=== PATIENT | male | born 1965 | race Caucasian/White ===

== ENCOUNTER 2018-08-20 08:00 | Emergency (ER) | payer SELFPAY ==
[~2018-08-20] VITALS: Ht 182.9 cm; Wt 147.9 kg
--- NOTE | 2018-08-20 08:22 | PHYS DOC ---
Past Medical History Past Medical History: Diabetes-Type II ("prediabetes"), Hypertension, Kidney Stone Smoking: Cigarettes (The patient is a nonsmoker.) Adult General Chief Complaint Chief Complaint: HYPERTENSION HPI HPI Patient is a 53-year-old male who presents to the emergency department for evaluation. He went to physical therapy session, for a left arm work injury yesterday, and when they checked his vitals, his SBP was 192. He states he has a history of hypertension, the patient states that he had stopped taking his Norvasc 5 mg for quite a while, but resumed about 2 weeks ago. He is asymptomatic. He denies any headache, vision changes, chest pain, or shortness of breath. He states he does not currently have a PCP, but expects to get back on his insurance plan and about a month, as he just started a new job. He does not have a functioning blood pressure cuff at home to check his blood pressure. I did discuss with the patient importance of checking his blood pressure regularly and keeping a log of the results, to help establish and determine the need for medication management and potential adjustments. Review of Systems Review of Systems Constitutional: Denies fever or chills [] Eyes: Denies change in visual acuity, redness, or eye pain, the patient does report some burning sensation in his forehead and eye area, which she states is a chronic problem which is intermittent. This is not a new problem. [] HENT: Denies nasal congestion or sore throat [] Respiratory: Denies cough or shortness of breath [] Cardiovascular:The patient denies any shortness of breath, chest pain, palpitations, or orthopnea [] GI: Denies abdominal pain, nausea, vomiting, bloody stools or diarrhea [] : Denies dysuria or hematuria [] Musculoskeletal: Denies back pain or joint pain [] Integument: Denies rash or skin lesions [] Neurologic: Denies headache, focal weakness or sensory changes [] Endocrine: Denies polyuria or polydipsia [] All other systems were reviewed and found to be within normal limits, except as documented in this note. Physical Exam Physical Exam PHYSICAL EXAM: CONSTITUTIONAL: Well developed, well nourished HEAD: normocephalic, atraumatic EENT: PERRL, EOMI. Conjunctivae normal color, sclerae non-icteric; moist mucous membranes. NECK: Supple, non-tender; no meningismus. LUNGS: Lungs CTA, breathing even and unlabored. Normal air movement. HEART: Regular rate and rhythm, no murmur CHEST: No deformity; non-tender ABDOMEN: The abdomen is soft, and non-tender, no masses or bruits. EXTREM: Normal ROM; no deformity, no calf tenderness. Normal pulses palpable in all extremities. There is no pedal edema. SKIN: No rash; no diaphoresis NEURO: Alert; normal speech and cognition; CN's grossly intact; strength grossly intact without focal deficit. BACK: No CVA TTP. Current Patient Data Vital Signs Vital Signs Date Time Temp Pulse Resp B/P (MAP) Pulse Ox O2 Delivery O2 Flow Rate FiO2 08/20/18 08:07 98.2 94 19 150/96 (114) 95 Room Air 98.2 Lab Values Laboratory Tests Test 08/20/18 08:24 White Blood Count 6.2 x10^3/uL (4.0-11.0) Red Blood Count 4.78 x10^6/uL (4.30-5.70) Hemoglobin 14.7 g/dL (13.0-17.5) Hematocrit 43.8 % (39.0-53.0) Mean Corpuscular Volume 92 fL (79-100) Mean Corpuscular Hemoglobin 31 pg (25-35) Mean Corpuscular Hemoglobin Concent 34 g/dL (31-37) Red Cell Distribution Width 14.0 % (11.5-14.5) Platelet Count 216 x10^3/uL (140-400) Neutrophils (%) (Auto) 63 % (31-73) Lymphocytes (%) (Auto) 25 % (24-48) Monocytes (%) (Auto) 8 % (0-9) Eosinophils (%) (Auto) 4 % (0-3) H Basophils (%) (Auto) 1 % (0-3) Neutrophils # (Auto) 3.9 x10^3uL (1.8-7.7) Lymphocytes # (Auto) 1.5 x10^3/uL (1.0-4.8) Monocytes # (Auto) 0.5 x10^3/uL (0.0-1.1) Eosinophils # (Auto) 0.2 x10^3/uL (0.0-0.7) Basophils # (Auto) 0.1 x10^3/uL (0.0-0.2) Sodium Level 138 mmol/L (136-145) Potassium Level 4.3 mmol/L (3.5-5.1) Chloride Level 103 mmol/L (98-107) Carbon Dioxide Level 23 mmol/L (21-32) Anion Gap 12 (6-14) Blood Urea Nitrogen 12 mg/dL (8-26) Creatinine 0.9 mg/dL (0.7-1.3) Estimated GFR (Cockcroft-Gault) 88.6 Glucose Level 205 mg/dL (70-99) H Calcium Level 9.0 mg/dL (8.5-10.1) Laboratory Tests 08/20/18 08:24 Laboratory Tests 08/20/18 08:24 EKG EKG [Normal sinus rhythm with a normal rate, normal axis, normal intervals, there are no acute ischemic ST/T changes.] Radiology/Procedures Radiology/Procedures [] Course & Med Decision Making Course & Med Decision Making Pertinent Lab studies reviewed. (See chart for details) [Patient's blood pressure 134/86 at this time. I discussed keeping a blood pressure log at home, with twice daily readings, and the importance of establishing close follow-up. The patient states that about a month he should have insurance and will be up to go back and see his primary care provider. I will not change his blood pressure medication at this time, given his current blood pressure readings. I did discuss normal physiologic fluctuation the blood pressure, and the need to determine what is abnormal that needs treatment what readings might be a variant readings. We discussed return precautions in detail.] Dragon Disclaimer Dragon Disclaimer This electronic medical record was generated, in whole or in part, using a voice recognition dictation system. Departure Departure Impression: Primary Impression: Hypertension Disposition: 01 HOME, SELF-CARE Condition: STABLE Referrals: GERBER BENNETT MD Patient Instructions: Hypertension JAN QURESHI MD August 20, 2018 08:22
[2018-08-20 08:34] LABS: BASO # 0.1 x10^3/uL (0.0-0.2); BASO % 1 % (0-3); EOS # 0.2 x10^3/uL (0.0-0.7); EOS % 4 % (0-3); HEMATOCRIT 43.8 % (39.0-53.0); HEMOGLOBIN 14.7 g/dL (13.0-17.5); LYMPH # 1.5 x10^3/uL (1.0-4.8); LYMPH % 25 % (24-48); MEAN CORPUSCULAR HEMOGLOBIN 31 pg (25-35); MEAN CORPUSCULAR HGB CONC 34 g/dL (31-37); MEAN CORPUSCULAR VOLUME 92 fL (79-100); MONO # 0.5 x10^3/uL (0.0-1.1); MONO % 8 % (0-9); NEUT # 3.9 x10^3uL (1.8-7.7); NEUT % 63 % (31-73); PLATELET COUNT 216 x10^3/uL (140-400); RED BLOOD COUNT 4.78 x10^6/uL (4.30-5.70); WHITE BLOOD COUNT 6.2 x10^3/uL (4.0-11.0)
[2018-08-20 08:43] LABS: CREATININE 0.9 mg/dL (0.7-1.3); GFR 88.6; POTASSIUM 4.3 mmol/L (3.5-5.1)
[2018-08-20 08:59] VITALS: BP 128/90
--- NOTE | 2018-08-20 14:33 | EKG ---
[facility] [address] [place] [address] Test Date: 2018-08-20 Test Time: 08:14:21 Pat Name: JESÚS ESTRADA Department: Room: Gender: M Disability Manager: : 1965 Requested By: JAN QURESHI Order Number: [id number] Reading MD: Prashant Mckeon Measurements Intervals [place] Rate: 90 P: 34 ME: 146 QRS: -2 QRSD: 82 T: 17 QT: 352 QTc: 435 Interpretive Statements SINUS RHYTHM LEFTWARD AXIS NONSPECIFIC ST-T WAVE CHANGES. Electronically Signed On 08-21-2018 10:09:28 CDT by Prashant Mckeon
== END 2018-08-20 09:04 | disposition home or self-care (01) ==
LOC: ER 08:00
DX: S49.92XA Unspecified injury of left shoulder and upper arm, initial encounter (principal); I10 Essential (primary) hypertension; E11.9 Type 2 diabetes mellitus without complications; X58.XXXA Exposure to other specified factors, initial encounter; Y93.89 Activity, other specified; Y92.69 Other specified industrial and construction area as the place of occurrence of the external cause; Y99.0 Civilian activity done for income or pay
CPT/HCPCS: 36415; 80048; 85025; 93005; 99285-25

== ENCOUNTER 2019-01-04 12:07 | Inpatient (IN) | payer SELFPAY ==
[~2019-01-04] VITALS: Ht 182.9 cm; Wt 147.9 kg
--- NOTE | 2019-01-04 14:08 | PHYS DOC ---
Past Medical History Past Medical History: Diabetes-Type II, Hypertension, Kidney Stone Past Surgical History: Tonsillectomy Additional Past Surgical Histo: KNEE SURGERY, KIDNEY STONES Alcohol Use: Occasionally Adult General Chief Complaint Chief Complaint: FLANK PAIN HPI HPI Patient is a 53 year old male who presents with 1015 this morning began having right sided abdominal pain and flank pain. States feels like he only gets out small amounts of urine at a time. Denies blood in urine. Rates his pain a 6/10. Review of Systems Review of Systems Constitutional: Denies fever or chills [] GI: abdominal pain, denies nausea, vomiting, bloody stools or diarrhea [] : Frequency. Denies dysuria or hematuria [] Musculoskeletal: Right back pain or joint pain [] Integument: Denies rash or skin lesions [] Neurologic: Denies headache, focal weakness or sensory changes [] All other systems were reviewed and found to be within normal limits, except as documented in this note. Current Medications Current Medications Current Medications Medications (Trade) Dose Ordered Sig/[facility] Start Time Stop Time Status Last Admin Dose Admin Fentanyl Citrate (Fentanyl 2ml Vial) 50 mcg 1X ONCE 01/04/19 15:00 01/04/19 15:01 DC 01/04/19 15:00 50 MCG Ketorolac Tromethamine (Toradol 30mg Vial) 30 mg 1X ONCE 01/04/19 15:00 01/04/19 15:01 DC 01/04/19 15:00 30 MG Sodium Chloride 1,000 ml @ 1,000 mls/hr Q1H 01/04/19 15:00 01/04/19 15:59 DC 01/04/19 14:34 1,000 MLS/HR Allergies Allergies Allergies Coded Allergies Type Severity Reaction Last Updated Verified No Known Drug Allergies 01/04/19 No Physical Exam Physical Exam Constitutional: Well developed, well nourished, no acute distress, non-toxic appearance. [] Cardiovascular:Heart rate regular rhythm, no murmur [] Lungs & Thorax: Bilateral breath sounds clear to auscultation [] Abdomen: Bowel sounds normal, soft, Right sided tenderness, no masses, no pulsatile masses. [] Skin: Warm, dry, no erythema, no rash. [] Back: No tenderness, Right CVA tenderness. [] Extremities: No tenderness, no cyanosis, no clubbing, ROM intact, no edema. [] Neurologic: Alert and oriented X 3, normal motor function, normal sensory function, no focal deficits noted. [] Psychologic: Affect normal, judgement normal, mood normal. [] Current Patient Data Vital Signs Vital Signs Date Time Temp Pulse Resp B/P (MAP) Pulse Ox O2 Delivery O2 Flow Rate FiO2 01/04/19 15:00 16 98 Room Air 01/04/19 15:00 84 152/90 (110) 01/04/19 13:00 98.7 98.7 Lab Values Laboratory Tests Test 01/04/19 14:00 01/04/19 14:25 Urine Collection Type Unknown Urine Color Yellow Urine Clarity Clear Urine pH 5.0 Urine Specific [place] 1.015 Urine Protein Negative mg/dL (NEG-TRACE) Urine Glucose (UA) 500 mg/dL (NEG) Urine Ketones (Stick) Negative mg/dL (NEG) Urine Blood Large (NEG) Urine Nitrite Negative (NEG) Urine Bilirubin Negative (NEG) Urine Urobilinogen Dipstick 0.2 mg/dL (0.2 mg/dL) Urine Leukocyte Esterase Negative (NEG) Urine RBC Tntc /HPF (0-2) Urine WBC Occ /HPF (0-4) Urine Bacteria 0 /HPF (0-FEW) Urine Hyaline Casts Moderate /HPF Urine Mucus Marked /LPF Urine Opiates Screen Neg (NEG) Urine Methadone Screen Neg (NEG) Urine Barbiturates Neg (NEG) Urine Phencyclidine Screen Neg (NEG) Urine Amphetamine/Methamphetamine Neg (NEG) Urine Benzodiazepines Screen Neg (NEG) Urine Cocaine Screen Neg (NEG) Urine Cannabinoids Screen Neg (NEG) Urine Ethyl Alcohol Neg (NEG) White Blood Count 9.3 x10^3/uL (4.0-11.0) Red Blood Count 4.88 x10^6/uL (4.30-5.70) Hemoglobin 15.1 g/dL (13.0-17.5) Hematocrit 43.9 % (39.0-53.0) Mean Corpuscular Volume 90 fL (79-100) Mean Corpuscular Hemoglobin 31 pg (25-35) Mean Corpuscular Hemoglobin Concent 35 g/dL (31-37) Red Cell Distribution Width 13.8 % (11.5-14.5) Platelet Count 218 x10^3/uL (140-400) Neutrophils (%) (Auto) 79 % (31-73) H Lymphocytes (%) (Auto) 14 % (24-48) L Monocytes (%) (Auto) 5 % (0-9) Eosinophils (%) (Auto) 1 % (0-3) Basophils (%) (Auto) 1 % (0-3) Neutrophils # (Auto) 7.4 x10^3/uL (1.8-7.7) Lymphocytes # (Auto) 1.3 x10^3/uL (1.0-4.8) Monocytes # (Auto) 0.5 x10^3/uL (0.0-1.1) Eosinophils # (Auto) 0.1 x10^3/uL (0.0-0.7) Basophils # (Auto) 0.0 x10^3/uL (0.0-0.2) Sodium Level 135 mmol/L (136-145) L Potassium Level 4.4 mmol/L (3.5-5.1) Chloride Level 101 mmol/L (98-107) Carbon Dioxide Level 23 mmol/L (21-32) Anion Gap 11 (6-14) Blood Urea Nitrogen 11 mg/dL (8-26) Creatinine 1.0 mg/dL (0.7-1.3) Estimated GFR (Cockcroft-Gault) 78.5 BUN/Creatinine Ratio 11 (6-20) Glucose Level 239 mg/dL (70-99) H Calcium Level 9.7 mg/dL (8.5-10.1) Total Bilirubin 0.6 mg/dL (0.2-1.0) Aspartate Amino Transferase (AST) 45 U/L (15-37) H Alanine Aminotransferase (ALT) 85 U/L (16-63) H Alkaline Phosphatase 88 U/L (46-116) Total Protein 7.8 g/dL (6.4-8.2) Albumin 4.0 g/dL (3.4-5.0) Albumin/Globulin Ratio 1.1 (1.0-1.7) Laboratory Tests 01/04/19 14:25 Laboratory Tests 01/04/19 14:25 EKG EKG [] Radiology/Procedures Radiology/Procedures [] Impressions: [facility] [address] [place], [place] [id number] IMAGING REPORT Signed PATIENT: JESÚS ESTRADA BACCOUNT: [id number] : 1965 LOCATION: ER AGE: 53 SEX: M EXAM STATUS: REG ER ORD. PHYSICIAN: BRENT TOVAR APRN REASON: hx kidney stone, right sided pain PROCEDURE: CT ABDOMEN PELVIS WO CONTRAST CT ABDOMEN PELVIS WO CONTRAST Indication: History of kidney stones. Right abdominal pain. Exposure: One or more of the following individualized dose reduction techniques were utilized for this examination: 1. Automated exposure control 2. Adjustment of the mA and/or kV according to patient size 3. Use of iterative reconstruction technique. Comparison: None are available. Technique: No intravenous contrast given. No oral contrast per request. Findings: Evaluation of solid viscera, bowel and vasculature is compromised by the noncontrast technique. Mild atelectasis or fibrosis in the lung bases. Hypodense liver compatible with fatty infiltration. Mild focus of relative increased density in the left liver measuring about 2 cm, may be due to fatty sparing, versus a lesion. Series 2, image 54. Spleen is unremarkable. Pancreas unremarkable. No adrenal mass. Moderate right hydronephrosis and ureteric dilatation to the right ureterovesical junction where there is a 6 mm calculus. Several additional right intrarenal calculi, measuring up to 9 mm in diameter. Approximately 2 left renal calculi, nonobstructive, largest at the lower pole measures 6 mm. No left hydronephroureter. No calcified gallstone. Aorta is nonaneurysmal. No significant lymph node enlargement. No significant small bowel distention. Colonic diverticulosis without evidence of acute colitis. The appendix is normal. No evidence of ascites or pneumoperitoneum. No definite abnormality of the urinary bladder. Degenerative spondylosis. Minimal retrolisthesis of L2 on L3, L3 on L4 and L4 on L5 vertebral bodies. Bilateral spondylolysis at L5 without L5-S1 spondylolisthesis. IMPRESSION: 1. Moderately obstructive 6 mm calculus at the right ureterovesical junction. 2. Additional intrarenal calculi bilaterally. 3. Hepatic steatosis. Small 2 cm area of relative hyperintensity in the anterior left liver may just represent an area of fatty sparing but lesion is not excludable. Further evaluation could be obtained with contrast-enhanced CT or MRI. Electronically signed by: Barrie Stinson MD (01/04/2019 2:22 PM) [id number] DICTATED and SIGNED BY: BARRIE STINSON MD DATE: 01/04/19 142 Course & Med Decision Making Course & Med Decision Making Patient is a 53 year old male who presents with 1015 this morning began having right sided abdominal pain and flank pain. States feels like he only gets out small amounts of urine at a time. Denies blood in urine. Rates his pain a 6/10. Right cva tenderness. Right sided abdominal tenderness with palpation. Abdomen otherwise soft and non-tender. Denies soa, chest pain, nausea, vomiting, di arrhea, numbness or tingling, headache, dizziness. Skin pink warm and dry. Alert and oriented. Ambulatory with steady gait. Mucus membranes moist. States hx of kidney stones and does not have a urologist. Last kidney stone with stint placed in 2014. Urine shows no infection. I have spoken to Urology ERROL Leo. She states to admit and they will come see the patient. I spoke to Dr. Gary and patient is being admitted for kidney stones and follow-up with urology. CT shows: 1. Moderately obstructive 6 mm calculus at the right ureterovesical junction. 2. Additional intrarenal calculi bilaterally. 3. Hepatic steatosis. Small 2 cm area of relative hyperintensity in the anterior left liver may just represent an area of fatty sparing but lesion is not excludable. Further evaluation could be obtained with contrast-enhanced CT or MRI. Dragon Disclaimer Dragon Disclaimer This electronic medical record was generated, in whole or in part, using a voice recognition dictation system. Departure Departure Impression: Primary Impression: Kidney stone Disposition: ADMITTED INPATIENT Admitting Physician: KACY Condition: STABLE Referrals: NO PCP (PCP) BRENT TOVAR APRN Jan 04, 2019 14:08
[2019-01-04 14:16] LABS: BILIRUBIN,URINE NEGATIVE (NEG); CLARITY,URINE CLEAR; COLOR,URINE YELLOW; NITRITE,URINE NEGATIVE (NEG); PROTEIN,URINE NEGATIVE (NEG-TRACE); UROBILINOGEN,URINE 0.2 mg/dL (0.2 mg/dL)
[2019-01-04 14:23] LABS: BARBITURATES NEG (NEG); BENZODIAZEPINES NEG (NEG); CANNABINOIDS NEG (NEG); COCAINE NEG (NEG); METHADONE NEG (NEG); OPIATES NEG (NEG); PHENCYCLIDINE NEG (NEG)
[2019-01-04 14:25] LABS: AMPHETAMINE/METHAMPHETAMINE NEG (NEG)
--- NOTE | 2019-01-04 14:25 | RAD ---
CT ABDOMEN PELVIS WO CONTRAST Indication: History of kidney stones. Right abdominal pain. Exposure: One or more of the following individualized dose reduction techniques were utilized for this examination: 1. Automated exposure control 2. Adjustment of the mA and/or kV according to patient size 3. Use of iterative reconstruction technique. Comparison: None are available. Technique: No intravenous contrast given. No oral contrast per request. Findings: Evaluation of solid viscera, bowel and vasculature is compromised by the noncontrast technique. Mild atelectasis or fibrosis in the lung bases. Hypodense liver compatible with fatty infiltration. Mild focus of relative increased density in the left liver measuring about 2 cm, may be due to fatty sparing, versus a lesion. Series 2, image 54. Spleen is unremarkable. Pancreas unremarkable. No adrenal mass. Moderate right hydronephrosis and ureteric dilatation to the right ureterovesical junction where there is a 6 mm calculus. Several additional right intrarenal calculi, measuring up to 9 mm in diameter. Approximately 2 left renal calculi, nonobstructive, largest at the lower pole measures 6 mm. No left hydronephroureter. No calcified gallstone. Aorta is nonaneurysmal. No significant lymph node enlargement. No significant small bowel distention. Colonic diverticulosis without evidence of acute colitis. The appendix is normal. No evidence of ascites or pneumoperitoneum. No definite abnormality of the urinary bladder. Degenerative spondylosis. Minimal retrolisthesis of L2 on L3, L3 on L4 and L4 on L5 vertebral bodies. Bilateral spondylolysis at L5 without L5-S1 spondylolisthesis. IMPRESSION: 1. Moderately obstructive 6 mm calculus at the right ureterovesical junction. 2. Additional intrarenal calculi bilaterally. 3. Hepatic steatosis. Small 2 cm area of relative hyperintensity in the anterior left liver may just represent an area of fatty sparing but lesion is not excludable. Further evaluation could be obtained with contrast-enhanced CT or MRI. Electronically signed by: Barrie Stinson MD (01/04/2019 2:22 PM) [facility]
[2019-01-04 14:27] LABS: HYALINE CASTS, URINE MODERATE /HPF
[2019-01-04 14:28] LABS: BACTERIA,URINE 0 /HPF (0-FEW); RBC,URINE TNTC /HPF (0-2); WBC,URINE OCC /HPF (0-4)
[2019-01-04 14:36] LABS: BASO % 1 % (0-3); EOS # 0.1 x10^3/uL (0.0-0.7); EOS % 1 % (0-3); HEMATOCRIT 43.9 % (39.0-53.0); HEMOGLOBIN 15.1 g/dL (13.0-17.5); LYMPH # 1.3 x10^3/uL (1.0-4.8); LYMPH % 14 % (24-48); MEAN CORPUSCULAR HEMOGLOBIN 31 pg (25-35); MEAN CORPUSCULAR HGB CONC 35 g/dL (31-37); MEAN CORPUSCULAR VOLUME 90 fL (79-100); MONO # 0.5 x10^3/uL (0.0-1.1); MONO % 5 % (0-9); NEUT # 7.4 x10^3/uL (1.8-7.7); NEUT % 79 % (31-73); PLATELET COUNT 218 x10^3/uL (140-400); RED BLOOD COUNT 4.88 x10^6/uL (4.30-5.70); RED CELL DISTRIBUTION WIDTH 13.8 % (11.5-14.5); WHITE BLOOD COUNT 9.3 x10^3/uL (4.0-11.0)
[2019-01-04 14:46] LABS: CALCIUM 9.7 mg/dL (8.5-10.1); GFR 78.5; POTASSIUM 4.4 mmol/L (3.5-5.1)
[2019-01-04 14:52] LABS: ALBUMIN/GLOBULIN RATIO 1.1 (1.0-1.7); TOTAL BILIRUBIN 0.6 mg/dL (0.2-1.0); TOTAL PROTEIN 7.8 g/dL (6.4-8.2)
[2019-01-04] MEDS ORDERED: KETOROLAC 30 MG/ML VIAL. IV ONE (15:00)
[2019-01-04] MEDS ORDERED: IV NORMAL SALINE 1000ML BAG 1,000 ML IV SCH (15:00)
[2019-01-04] MEDS ORDERED: fentaNYL PF VIAL 100 MCG/2 ML VIAL IV ONE (15:00)
[2019-01-04] MEDS ORDERED: ONDANSETRON PF 4 MG/2 ML VIAL. IV PRN (16:15)
[2019-01-04] MEDS ORDERED: fentaNYL PF VIAL 100 MCG/2 ML VIAL IV PRN (16:15)
--- NOTE | 2019-01-04 20:00 | NUR ---
Patient, JESÚS HAJI, admitted to room 560, plan of care discussed, call light described, will monitor. Addendum: 01/05/19 at 0633 by STEPHAN PEREZ RN patient denies any history as in DM, HTN, reports he isn't taking any medications.
[2019-01-04] MEDS: IV NORMAL SALINE 1000ML BAG 1,000 ML IV SCH (20:08)
--- NOTE | 2019-01-04 21:08 | HP ---
ADMIT DATE: 01/04/2019 CHIEF COMPLAINT: Flank pain. HISTORY OF PRESENT ILLNESS: The patient is a pleasant middle-aged male who has flank pain, today it is rated at 10/10. He has associated nausea. It has been occurring for several days. He took some [id number] meds, that did not work. We did a CAT scan, he has got a 6 mm stone. I talked to the ER doctor. We are going to admit the patient and consult Urology. PAST MEDICAL HISTORY: Diabetes, hypertension, kidney stones, tonsillectomy, knee surgery, overweight. ALLERGIES: None. FAMILY HISTORY: Hypertension. SOCIAL HISTORY: Does not drink, smoke or take drugs. MEDICATIONS: Reviewed, please refer to the MRAD. REVIEW OF SYSTEMS: GENERAL: No history of weight change, weakness or fevers. SKIN: No bruising, hair changes or rashes. EYES: No blurred, double or loss of vision. NOSE AND THROAT: No history of nosebleeds, hoarseness or sore throat. HEART: No history of palpitations, chest pain or shortness of breath on exertion. LUNGS: Denies cough, hemoptysis, wheezing or shortness of breath. GASTROINTESTINAL: Denies changes in appetite, nausea, vomiting, diarrhea or constipation. He complains of flank pain. GENITOURINARY: No history of frequency, urgency, hesitancy or nocturia. NEUROLOGIC: Denies history of numbness, tingling, tremor or weakness. PSYCHIATRIC: No history of panic, anxiety or depression. ENDOCRINE: No history of heat or cold intolerance, polyuria or polydipsia. EXTREMITIES: Denies muscle weakness, joint pain, pain on walking or stiffness. PHYSICAL EXAMINATION: VITALS: Within normal limits and are stable. GENERAL: No apparent distress. Alert and oriented. HEENT: Head is normocephalic, atraumatic, pupils were equally round and reactive to light and accommodation. NECK: Supple, no JVD, no thyromegaly was noted. LUNGS: Clear to auscultation in all lung seth without rhonchi or wheezing. HEART: RRR, S1, S2 present. Peripheral pulses intact, no obvious murmurs were noted. ABDOMEN: Soft, nontender. Positive bowel sounds no organomegaly, normal bowel sounds. EXTREMITIES: Without any cyanosis, clubbing, or edema. Pedal pulses intact, Homans sign is negative. NEUROLOGIC: Normal speech, normal tone. A & O x3, moves all extremities, no obvious focal deficits. PSYCHIATRIC: Normal affect, normal mood. Stable. SKIN: No ulcerations or rashes, good skin turgor, no jaundice. VASCULAR: Good capillary refill, neurovascular bundle appears to be intact. LABORATORY DATA: Hematology is normal. Electrolytes are normal other than sodium of 135. Urinalysis shows a large amount of blood. ASSESSMENT AND PLAN: Symptomatic kidney stones. The patient has been admitted. We will consult Urology. Strain his urine, IV fluids, p.r.n. antiemetics, p.r.n. narcotics. ROBERT KO DO DR: MARTELL/kristian JOB#: [id number] / [id number]
[2019-01-04 23:00] VITALS: BP 134/91
[2019-01-05 03:00] VITALS: BP 112/69
[2019-01-05 07:00] VITALS: BP 144/95
[2019-01-05] MEDS: IV NORMAL SALINE 1000ML BAG 1,000 ML IV SCH (07:33)
[2019-01-05] MEDS ORDERED: DEXTROSE 50% 25 GM / 50ML DISP.SYRIN. IV PRN (08:00)
[2019-01-05] MEDS ORDERED: IV DEXTROSE 5% 250 ML BAG. IV PRN (08:00)
[2019-01-05] MEDS ORDERED: INSULIN LISPRO 300 UNITS/3 ML VIAL. SQ SCH (08:00)
[2019-01-05] MEDS ORDERED: TAMSULOSIN 0.4 MG CAP.ER.24H. PO SCH ×2 (08:00→09:00)
[2019-01-05] MEDS ORDERED: KETOROLAC 30 MG/ML VIAL. IV PRN (08:00)
--- NOTE | 2019-01-05 08:04 | PDOC ---
PROGRESS NOTES Chief Complaint Chief Complaint Right obstructive uropathy - 6mm uretal stone Hepatic steatosis Diabetes - with hyperglycemia Hypertension H/o kidney stones Obesity Transaminitis History of Present Illness History of Present Illness Mr Hanna is a 53yo male w/ PMHx diabetes, hypertension, kidney stones, obese who was admitted with flank pain 10/10 and nausea, found on CAT scan with a right ureterovesicular junction 6 mm stone with moderate hydronephrosis. He has a history of multiple kidney stones requiring b/l percutaneous nephrolithotomy in 2012 done at [facility] [place]. Pain was improved to 5/10 after toradol injection. NPO for now Vitals Vitals Vital Signs Date Time Temp Pulse Resp B/P (MAP) Pulse Ox O2 Delivery O2 Flow Rate FiO2 01/05/19 03:00 97.7 80 18 112/69 (83) 91 Room Air 97.7 Physical Exam General: Alert, Oriented X3, Cooperative Heart: Regular rate, Normal S1, Normal S2 Lungs: Clear Abdomen: Normal bowel sounds, Soft Extremities: No clubbing, No cyanosis Skin: No rashes, No breakdown Labs LABS Laboratory Tests Test 01/04/19 14:00 01/04/19 14:25 Urine Collection Type Unknown Urine Color Yellow Urine Clarity Clear Urine pH 5.0 Urine Specific [place] 1.015 Urine Protein Negative mg/dL (NEG-TRACE) Urine Glucose (UA) 500 mg/dL (NEG) Urine Ketones (Stick) Negative mg/dL (NEG) Urine Blood Large (NEG) Urine Nitrite Negative (NEG) Urine Bilirubin Negative (NEG) Urine Urobilinogen Dipstick 0.2 mg/dL (0.2 mg/dL) Urine Leukocyte Esterase Negative (NEG) Urine RBC Tntc /HPF (0-2) Urine WBC Occ /HPF (0-4) Urine Bacteria 0 /HPF (0-FEW) Urine Hyaline Casts Moderate /HPF Urine Mucus Marked /LPF Urine Opiates Screen Neg (NEG) Urine Methadone Screen Neg (NEG) Urine Barbiturates Neg (NEG) Urine Phencyclidine Screen Neg (NEG) Urine Amphetamine/Methamphetamine Neg (NEG) Urine Benzodiazepines Screen Neg (NEG) Urine Cocaine Screen Neg (NEG) Urine Cannabinoids Screen Neg (NEG) Urine Ethyl Alcohol Neg (NEG) White Blood Count 9.3 x10^3/uL (4.0-11.0) Red Blood Count 4.88 x10^6/uL (4.30-5.70) Hemoglobin 15.1 g/dL (13.0-17.5) Hematocrit 43.9 % (39.0-53.0) Mean Corpuscular Volume 90 fL (79-100) Mean Corpuscular Hemoglobin 31 pg (25-35) Mean Corpuscular Hemoglobin Concent 35 g/dL (31-37) Red Cell Distribution Width 13.8 % (11.5-14.5) Platelet Count 218 x10^3/uL (140-400) Neutrophils (%) (Auto) 79 % (31-73) Lymphocytes (%) (Auto) 14 % (24-48) Monocytes (%) (Auto) 5 % (0-9) Eosinophils (%) (Auto) 1 % (0-3) Basophils (%) (Auto) 1 % (0-3) Neutrophils # (Auto) 7.4 x10^3/uL (1.8-7.7) Lymphocytes # (Auto) 1.3 x10^3/uL (1.0-4.8) Monocytes # (Auto) 0.5 x10^3/uL (0.0-1.1) Eosinophils # (Auto) 0.1 x10^3/uL (0.0-0.7) Basophils # (Auto) 0.0 x10^3/uL (0.0-0.2) Sodium Level 135 mmol/L (136-145) Potassium Level 4.4 mmol/L (3.5-5.1) Chloride Level 101 mmol/L (98-107) Carbon Dioxide Level 23 mmol/L (21-32) Anion Gap 11 (6-14) Blood Urea Nitrogen 11 mg/dL (8-26) Creatinine 1.0 mg/dL (0.7-1.3) Estimated GFR (Cockcroft-Gault) 78.5 BUN/Creatinine Ratio 11 (6-20) Glucose Level 239 mg/dL (70-99) Calcium Level 9.7 mg/dL (8.5-10.1) Total Bilirubin 0.6 mg/dL (0.2-1.0) Aspartate Amino Transf (AST/SGOT) 45 U/L (15-37) Alanine Aminotransferase (ALT/SGPT) 85 U/L (16-63) Alkaline Phosphatase 88 U/L (46-116) Total Protein 7.8 g/dL (6.4-8.2) Albumin 4.0 g/dL (3.4-5.0) Albumin/Globulin Ratio 1.1 (1.0-1.7) Assessment and Plan Assessmemt and Plan Problems Medical Problems: (1) Kidney stone Status: Acute Comment Review of Relevant I have reviewed the following items tamiko (where applicable) has been applied. Labs Laboratory Tests Test 01/04/19 14:00 01/04/19 14:25 Urine Collection Type Unknown Urine Color Yellow Urine Clarity Clear Urine pH 5.0 Urine Specific [place] 1.015 Urine Protein Negative mg/dL (NEG-TRACE) Urine Glucose (UA) 500 mg/dL (NEG) Urine Ketones (Stick) Negative mg/dL (NEG) Urine Blood Large (NEG) Urine Nitrite Negative (NEG) Urine Bilirubin Negative (NEG) Urine Urobilinogen Dipstick 0.2 mg/dL (0.2 mg/dL) Urine Leukocyte Esterase Negative (NEG) Urine RBC Tntc /HPF (0-2) Urine WBC Occ /HPF (0-4) Urine Bacteria 0 /HPF (0-FEW) Urine Hyaline Casts Moderate /HPF Urine Mucus Marked /LPF Urine Opiates Screen Neg (NEG) Urine Methadone Screen Neg (NEG) Urine Barbiturates Neg (NEG) Urine Phencyclidine Screen Neg (NEG) Urine Amphetamine/Methamphetamine Neg (NEG) Urine Benzodiazepines Screen Neg (NEG) Urine Cocaine Screen Neg (NEG) Urine Cannabinoids Screen Neg (NEG) Urine Ethyl Alcohol Neg (NEG) White Blood Count 9.3 x10^3/uL (4.0-11.0) Red Blood Count 4.88 x10^6/uL (4.30-5.70) Hemoglobin 15.1 g/dL (13.0-17.5) Hematocrit 43.9 % (39.0-53.0) Mean Corpuscular Volume 90 fL (79-100) Mean Corpuscular Hemoglobin 31 pg (25-35) Mean Corpuscular Hemoglobin Concent 35 g/dL (31-37) Red Cell Distribution Width 13.8 % (11.5-14.5) Platelet Count 218 x10^3/uL (140-400) Neutrophils (%) (Auto) 79 % (31-73) Lymphocytes (%) (Auto) 14 % (24-48) Monocytes (%) (Auto) 5 % (0-9) Eosinophils (%) (Auto) 1 % (0-3) Basophils (%) (Auto) 1 % (0-3) Neutrophils # (Auto) 7.4 x10^3/uL (1.8-7.7) Lymphocytes # (Auto) 1.3 x10^3/uL (1.0-4.8) Monocytes # (Auto) 0.5 x10^3/uL (0.0-1.1) Eosinophils # (Auto) 0.1 x10^3/uL (0.0-0.7) Basophils # (Auto) 0.0 x10^3/uL (0.0-0.2) Sodium Level 135 mmol/L (136-145) Potassium Level 4.4 mmol/L (3.5-5.1) Chloride Level 101 mmol/L (98-107) Carbon Dioxide Level 23 mmol/L (21-32) Anion Gap 11 (6-14) Blood Urea Nitrogen 11 mg/dL (8-26) Creatinine 1.0 mg/dL (0.7-1.3) Estimated GFR (Cockcroft-Gault) 78.5 BUN/Creatinine Ratio 11 (6-20) Glucose Level 239 mg/dL (70-99) Calcium Level 9.7 mg/dL (8.5-10.1) Total Bilirubin 0.6 mg/dL (0.2-1.0) Aspartate Amino Transf (AST/SGOT) 45 U/L (15-37) Alanine Aminotransferase (ALT/SGPT) 85 U/L (16-63) Alkaline Phosphatase 88 U/L (46-116) Total Protein 7.8 g/dL (6.4-8.2) Albumin 4.0 g/dL (3.4-5.0) Albumin/Globulin Ratio 1.1 (1.0-1.7) Laboratory Tests Test 01/04/19 14:00 01/04/19 14:25 Urine Collection Type Unknown Urine Color Yellow Urine Clarity Clear Urine pH 5.0 Urine Specific [place] 1.015 Urine Protein Negative mg/dL (NEG-TRACE) Urine Glucose (UA) 500 mg/dL (NEG) Urine Ketones (Stick) Negative mg/dL (NEG) Urine Blood Large (NEG) Urine Nitrite Negative (NEG) Urine Bilirubin Negative (NEG) Urine Urobilinogen Dipstick 0.2 mg/dL (0.2 mg/dL) Urine Leukocyte Esterase Negative (NEG) Urine RBC Tntc /HPF (0-2) Urine WBC Occ /HPF (0-4) Urine Bacteria 0 /HPF (0-FEW) Urine Hyaline Casts Moderate /HPF Urine Mucus Marked /LPF Urine Opiates Screen Neg (NEG) Urine Methadone Screen Neg (NEG) Urine Barbiturates Neg (NEG) Urine Phencyclidine Screen Neg (NEG) Urine Amphetamine/Methamphetamine Neg (NEG) Urine Benzodiazepines Screen Neg (NEG) Urine Cocaine Screen Neg (NEG) Urine Cannabinoids Screen Neg (NEG) Urine Ethyl Alcohol Neg (NEG) White Blood Count 9.3 x10^3/uL (4.0-11.0) Red Blood Count 4.88 x10^6/uL (4.30-5.70) Hemoglobin 15.1 g/dL (13.0-17.5) Hematocrit 43.9 % (39.0-53.0) Mean Corpuscular Volume 90 fL (79-100) Mean Corpuscular Hemoglobin 31 pg (25-35) Mean Corpuscular Hemoglobin Concent 35 g/dL (31-37) Red Cell Distribution Width 13.8 % (11.5-14.5) Platelet Count 218 x10^3/uL (140-400) Neutrophils (%) (Auto) 79 % (31-73) Lymphocytes (%) (Auto) 14 % (24-48) Monocytes (%) (Auto) 5 % (0-9) Eosinophils (%) (Auto) 1 % (0-3) Basophils (%) (Auto) 1 % (0-3) Neutrophils # (Auto) 7.4 x10^3/uL (1.8-7.7) Lymphocytes # (Auto) 1.3 x10^3/uL (1.0-4.8) Monocytes # (Auto) 0.5 x10^3/uL (0.0-1.1) Eosinophils # (Auto) 0.1 x10^3/uL (0.0-0.7) Basophils # (Auto) 0.0 x10^3/uL (0.0-0.2) Sodium Level 135 mmol/L (136-145) Potassium Level 4.4 mmol/L (3.5-5.1) Chloride Level 101 mmol/L (98-107) Carbon Dioxide Level 23 mmol/L (21-32) Anion Gap 11 (6-14) Blood Urea Nitrogen 11 mg/dL (8-26) Creatinine 1.0 mg/dL (0.7-1.3) Estimated GFR (Cockcroft-Gault) 78.5 BUN/Creatinine Ratio 11 (6-20) Glucose Level 239 mg/dL (70-99) Calcium Level 9.7 mg/dL (8.5-10.1) Total Bilirubin 0.6 mg/dL (0.2-1.0) Aspartate Amino Transf (AST/SGOT) 45 U/L (15-37) Alanine Aminotransferase (ALT/SGPT) 85 U/L (16-63) Alkaline Phosphatase 88 U/L (46-116) Total Protein 7.8 g/dL (6.4-8.2) Albumin 4.0 g/dL (3.4-5.0) Albumin/Globulin Ratio 1.1 (1.0-1.7) Medications Current Medications Sodium Chloride 1,000 ml @ 1,000 mls/hr Q1H IV Last administered on 01/04/19at 14:34; Start 01/04/19 at 15:00; Stop 01/04/19 at 15:59; Status DC Fentanyl Citrate (Fentanyl 2ml Vial) 50 mcg 1X ONCE IV Last administered on 01/04/19at 15:00; Start 01/04/19 at 15:00; Stop 01/04/19 at 15:01; Status DC Ketorolac Tromethamine (Toradol 30mg Vial) 30 mg 1X ONCE IV Last administered on 01/04/19at 15:00; Start 01/04/19 at 15:00; Stop 01/04/19 at 15:01; Status DC Ondansetron HCl (Zofran) 4 mg PRN Q8HRS PRN IV NAUSEA/VOMITING; Start 01/04/19 at 16:15; Stop 01/05/19 at 16:14 Fentanyl Citrate (Fentanyl 2ml Vial) 50 mcg PRN Q1HR PRN IV PAIN Last administered on 01/04/19at 20:08; Start 01/04/19 at 16:15; Stop 01/05/19 at 16:14 Sodium Chloride 1,000 ml @ 75 mls/hr [id number] IV Last administered on 01/05/19at 07:33; Start 01/04/19 at 16:01; Stop 01/05/19 at 16:00 Tamsulosin HCl (Flomax) 0.4 mg BID66 PO ; Start 01/05/19 at 08:00; Status UNV Ketorolac Tromethamine (Toradol 30mg Vial) 30 mg PRN Q6HRS PRN IV PAIN; Start 01/05/19 at 08:00; Stop 01/10/19 at 07:59; Status UNV Insulin Human Lispro (HumaLOG) 0-7 UNITS TIDWMEALS SQ ; Start 01/05/19 at 08:00; Status UNV Dextrose (Dextrose 50%-Water Syringe) 12.5 gm PRN Q15MIN PRN IV SEE COMMENTS; Start 01/05/19 at 08:00; Status UNV Dextrose 250 ml PRN Q15MIN PRN IV SEE COMMENTS; Start 01/05/19 at 08:00; Status UNV Vitals/I & O Vital Sign - Last 24 Hours 01/04/19 01/04/19 01/04/19 01/04/19 13:00 14:00 15:00 15:00 Temp 98.7 98.7 Pulse 80 88 84 Resp 18 18 18 16 B/P (MAP) 148/98 (115) 159/96 (117) 152/90 (110) Pulse Ox 96 95 95 98 O2 Delivery Room Air Room Air Room Air Room Air 01/04/19 01/04/19 01/04/19 01/04/19 16:00 17:00 18:00 18:30 Resp 18 18 18 18 B/P (MAP) 134/81 (98) 128/82 (97) 137/92 (107) 132/86 (101) Pulse Ox 97 98 99 97 O2 Delivery Room Air Room Air Room Air Room Air 01/04/19 01/04/19 01/04/19 01/05/19 20:00 20:08 23:00 02:43 Temp 98.0 98.0 Pulse 84 Resp 20 20 20 B/P (MAP) 134/91 (105) Pulse Ox 95 O2 Delivery Room Air Room Air Room Air 01/05/19 03:00 Temp 97.7 97.7 Pulse 80 Resp 18 B/P (MAP) 112/69 (83) Pulse Ox 91 O2 Delivery Room Air Intake and Output 01/04/19 01/04/19 01/05/19 14:59 22:59 06:59 Intake Total 1000 ml 260 ml 350 ml Balance 1000 ml 260 ml [address] abdomen - 1. Moderately obstructive 6 mm calculus at the right ureterovesical junction. 2. Additional intrarenal calculi bilaterally. 3. Hepatic steatosis. Small 2 cm area of relative hyperintensity in the anterior left liver may just represent an area of fatty sparing but lesion is not excludable. Further evaluation could be obtained with contrast-enhanced CT or MRI. NORA MANN MD Jan 05, 2019 08:04
--- NOTE | 2019-01-05 08:56 | PDOC2 ---
POLLO GALAVIZ 01/05/19 0856: UROLOGY CONSULT Date of Consult Date of Consult DATE: 01/05/19 TIME: 08:55 Identification/Chief Complaint Chief Complaint 6mm right uvj stone Source Source: Chart review, Patient History of Present Illness Reason for Visit: 53yo male with PMH of DM and HTN presented to ER for right flank pain. CT showed 6mm right uvj stone with moderate hydronephrosis. He has a history of multiple kidney stones requiring b/l [place] [facility] [place] He states his pain is improved but still present this morning. Rated 5/10 pain. He denies nausea, vomiting, dysuria, hematuria, fevers, chills. Past Medical History Cardiovascular: HTN Renal/: Other (kidney stones) Endocrine: Diabetes Past Surgical History Past Surgical History: Other (percutaneous nephrolitotomy 2012) Family History Family History: No Significant Social History No ALCOHOL: none Drugs: None Current Medications Current Medications Current Medications Dextrose 250 ml PRN Q15MIN PRN IV SEE COMMENTS; Start 01/05/19 at 08:00; Status UNV Dextrose (Dextrose 50%-Water Syringe) 12.5 gm PRN Q15MIN PRN IV SEE COMMENTS; Start 01/05/19 at 08:00 Fentanyl Citrate (Fentanyl 2ml Vial) 50 mcg 1X ONCE IV Last administered on 01/04/19at 15:00; Start 01/04/19 at 15:00; Stop 01/04/19 at 15:01; Status DC Fentanyl Citrate (Fentanyl 2ml Vial) 50 mcg PRN Q1HR PRN IV PAIN Last administ ered on 01/04/19at 20:08; Start 01/04/19 at 16:15; Stop 01/05/19 at 16:14 Insulin Human Lispro (HumaLOG) 0-7 UNITS TIDWMEALS SQ ; Start 01/05/19 at 08:00 Ketorolac Tromethamine (Toradol 30mg Vial) 30 mg 1X ONCE IV Last administered on 01/04/19at 15:00; Start 01/04/19 at 15:00; Stop 01/04/19 at 15:01; Status DC Ketorolac Tromethamine (Toradol 30mg Vial) 30 mg PRN Q6HRS PRN IV PAIN; Start 01/05/19 at 08:00; Stop 01/10/19 at 07:59 Ondansetron HCl (Zofran) 4 mg PRN Q8HRS PRN IV NAUSEA/VOMITING; Start 01/04/19 at 16:15; Stop 01/05/19 at 16:14 Sodium Chloride 1,000 ml @ 75 mls/hr [id number] IV Last administered on 01/05/19at 07:33; Start 01/04/19 at 16:01; Stop 01/05/19 at 16:00 Sodium Chloride 1,000 ml @ 1,000 mls/hr Q1H IV Last administered on 01/04/19at 14:34; Start 01/04/19 at 15:00; Stop 01/04/19 at 15:59; Status DC Tamsulosin HCl (Flomax) 0.4 mg BID66 PO ; Start 01/05/19 at 08:00 Allergies Allergies: Coded Allergies: No Known Drug Allergies (Unverified , 01/04/19) ROS Review Of Systems: CONSTITUTIONAL: No fever or chills EYES: No recent changes SKIN: No rash or itching CARDIOVASCULAR: No chest pain, syncope, palpitations, or edema RESPIRATORY: No SOB or cough GASTROINTESTINAL: No nausea, vomiting or abdominal pain NEUROLOGICAL: No headaches or weakness ENDOCRINE: No cold or heat intolerance GENITOURINARY: No urgency or frequency of urination MUSCULOSKELETAL: No back pain or joint pain LYMPHATICS: No enlarged lymph nodes PSYCHIATRIC: No anxiety or depression Physical Exam Physical Exam: General: Pleasant, no acute distress, well groomed Eyes: conjunctiva anicteric, eyes full range of motion ENT: moist oral mucosa, normal dentition Neck: Trachea midline, no masses Respiratory: unlabored breathing, not using accessory muscles Cardiovascular: Regular rate and rhythm, no peripheral edema Abdomen: TTP right quadrants, nondistended, no hepatosplenomegaly, no masses. No CVAT Skin: no rashes or skin lesions on visualized skin Psych: normal mood, affect. Alert and oriented x 3. Vitals VITALS Vital Signs Date Time Temp Pulse Resp B/P (MAP) Pulse Ox O2 Delivery O2 Flow Rate FiO2 01/05/19 07:00 98.1 82 18 144/95 (111) 97 Room Air 98.1 Labs Labs Laboratory Tests Test 01/04/19 14:00 01/04/19 14:25 01/05/19 08:14 Urine Collection Type Unknown Urine Color Yellow Urine Clarity Clear Urine pH 5.0 Urine Specific [place] 1.015 Urine Protein Negative mg/dL (NEG-TRACE) Urine Glucose (UA) 500 mg/dL (NEG) Urine Ketones (Stick) Negative mg/dL (NEG) Urine Blood Large (NEG) Urine Nitrite Negative (NEG) Urine Bilirubin Negative (NEG) Urine Urobilinogen Dipstick 0.2 mg/dL (0.2 mg/dL) Urine Leukocyte Esterase Negative (NEG) Urine RBC Tntc /HPF (0-2) Urine WBC Occ /HPF (0-4) Urine Bacteria 0 /HPF (0-FEW) Urine Hyaline Casts Moderate /HPF Urine Mucus Marked /LPF Urine Opiates Screen Neg (NEG) Urine Methadone Screen Neg (NEG) Urine Barbiturates Neg (NEG) Urine Phencyclidine Screen Neg (NEG) Urine Amphetamine/Methamphetamine Neg (NEG) Urine Benzodiazepines Screen Neg (NEG) Urine Cocaine Screen Neg (NEG) Urine Cannabinoids Screen Neg (NEG) Urine Ethyl Alcohol Neg (NEG) White Blood Count 9.3 x10^3/uL (4.0-11.0) Red Blood Count 4.88 x10^6/uL (4.30-5.70) Hemoglobin 15.1 g/dL (13.0-17.5) Hematocrit 43.9 % (39.0-53.0) Mean Corpuscular Volume 90 fL (79-100) Mean Corpuscular Hemoglobin 31 pg (25-35) Mean Corpuscular Hemoglobin Concent 35 g/dL (31-37) Red Cell Distribution Width 13.8 % (11.5-14.5) Platelet Count 218 x10^3/uL (140-400) Neutrophils (%) (Auto) 79 % (31-73) Lymphocytes (%) (Auto) 14 % (24-48) Monocytes (%) (Auto) 5 % (0-9) Eosinophils (%) (Auto) 1 % (0-3) Basophils (%) (Auto) 1 % (0-3) Neutrophils # (Auto) 7.4 x10^3/uL (1.8-7.7) Lymphocytes # (Auto) 1.3 x10^3/uL (1.0-4.8) Monocytes # (Auto) 0.5 x10^3/uL (0.0-1.1) Eosinophils # (Auto) 0.1 x10^3/uL (0.0-0.7) Basophils # (Auto) 0.0 x10^3/uL (0.0-0.2) Sodium Level 135 mmol/L (136-145) Potassium Level 4.4 mmol/L (3.5-5.1) Chloride Level 101 mmol/L (98-107) Carbon Dioxide Level 23 mmol/L (21-32) Anion Gap 11 (6-14) Blood Urea Nitrogen 11 mg/dL (8-26) Creatinine 1.0 mg/dL (0.7-1.3) Estimated GFR (Cockcroft-Gault) 78.5 BUN/Creatinine Ratio 11 (6-20) Glucose Level 239 mg/dL (70-99) Calcium Level 9.7 mg/dL (8.5-10.1) Total Bilirubin 0.6 mg/dL (0.2-1.0) Aspartate Amino Transf (AST/SGOT) 45 U/L (15-37) Alanine Aminotransferase (ALT/SGPT) 85 U/L (16-63) Alkaline Phosphatase 88 U/L (46-116) Total Protein 7.8 g/dL (6.4-8.2) Albumin 4.0 g/dL (3.4-5.0) Albumin/Globulin Ratio 1.1 (1.0-1.7) Glucose (Fingerstick) 204 mg/dL (70-99) Laboratory Tests Test 01/04/19 14:00 01/04/19 14:25 01/05/19 08:14 Urine Collection Type Unknown Urine Color Yellow Urine Clarity Clear Urine pH 5.0 Urine Specific [place] 1.015 Urine Protein Negative mg/dL (NEG-TRACE) Urine Glucose (UA) 500 mg/dL (NEG) Urine Ketones (Stick) Negative mg/dL (NEG) Urine Blood Large (NEG) Urine Nitrite Negative (NEG) Urine Bilirubin Negative (NEG) Urine Urobilinogen Dipstick 0.2 mg/dL (0.2 mg/dL) Urine Leukocyte Esterase Negative (NEG) Urine RBC Tntc /HPF (0-2) Urine WBC Occ /HPF (0-4) Urine Bacteria 0 /HPF (0-FEW) Urine Hyaline Casts Moderate /HPF Urine Mucus Marked /LPF Urine Opiates Screen Neg (NEG) Urine Methadone Screen Neg (NEG) Urine Barbiturates Neg (NEG) Urine Phencyclidine Screen Neg (NEG) Urine Amphetamine/Methamphetamine Neg (NEG) Urine Benzodiazepines Screen Neg (NEG) Urine Cocaine Screen Neg (NEG) Urine Cannabinoids Screen Neg (NEG) Urine Ethyl Alcohol Neg (NEG) White Blood Count 9.3 x10^3/uL (4.0-11.0) Red Blood Count 4.88 x10^6/uL (4.30-5.70) Hemoglobin 15.1 g/dL (13.0-17.5) Hematocrit 43.9 % (39.0-53.0) Mean Corpuscular Volume 90 fL (79-100) Mean Corpuscular Hemoglobin 31 pg (25-35) Mean Corpuscular Hemoglobin Concent 35 g/dL (31-37) Red Cell Distribution Width 13.8 % (11.5-14.5) Platelet Count 218 x10^3/uL (140-400) Neutrophils (%) (Auto) 79 % (31-73) Lymphocytes (%) (Auto) 14 % (24-48) Monocytes (%) (Auto) 5 % (0-9) Eosinophils (%) (Auto) 1 % (0-3) Basophils (%) (Auto) 1 % (0-3) Neutrophils # (Auto) 7.4 x10^3/uL (1.8-7.7) Lymphocytes # (Auto) 1.3 x10^3/uL (1.0-4.8) Monocytes # (Auto) 0.5 x10^3/uL (0.0-1.1) Eosinophils # (Auto) 0.1 x10^3/uL (0.0-0.7) Basophils # (Auto) 0.0 x10^3/uL (0.0-0.2) Sodium Level 135 mmol/L (136-145) Potassium Level 4.4 mmol/L (3.5-5.1) Chloride Level 101 mmol/L (98-107) Carbon Dioxide Level 23 mmol/L (21-32) Anion Gap 11 (6-14) Blood Urea Nitrogen 11 mg/dL (8-26) Creatinine 1.0 mg/dL (0.7-1.3) Estimated GFR (Cockcroft-Gault) 78.5 BUN/Creatinine Ratio 11 (6-20) Glucose Level 239 mg/dL (70-99) Calcium Level 9.7 mg/dL (8.5-10.1) Total Bilirubin 0.6 mg/dL (0.2-1.0) Aspartate Amino Transf (AST/SGOT) 45 U/L (15-37) Alanine Aminotransferase (ALT/SGPT) 85 U/L (16-63) Alkaline Phosphatase 88 U/L (46-116) Total Protein 7.8 g/dL (6.4-8.2) Albumin 4.0 g/dL (3.4-5.0) Albumin/Globulin Ratio 1.1 (1.0-1.7) Glucose (Fingerstick) 204 mg/dL (70-99) Assessment/Plan Assessment/Plan 6mm right uvj stone with moderate hydronephrosis Will start flomax Will try to schedule stone removal in OR this morning - keep NPO Otherwise continue straining urine and try for spontaneous passage of stone D/w Dr. Tolentino - to round on patient today JAN TOLENTINO MD 01/05/19 1045: UROLOGY CONSULT Assessment/Plan Assessment/Plan I have seen patient and reviewed chart. He has long hx of stones. I have discussed the options and he would like stone removed. He knows the nature of planned procedure and extenuating risks. Will proceed w R uret';y with stone removal and stent placement today. POLLO GALAVIZ Jan 05, 2019 08:56 JAN TOLENTINO MD Jan 05, 2019 10:45
[2019-01-05] MEDS ORDERED: IV RINGERS,LACTATED 1000ML 1,000 ML IV SCH (10:12)
[2019-01-05] MEDS ORDERED: HYDROmorphone 2 MG/ML VIAL IV PRN (10:15)
[2019-01-05] MEDS ORDERED: MORPHINE SULFATE 2 MG/ML VIAL. IV PRN (10:15)
[2019-01-05] MEDS ORDERED: ONDANSETRON PF 4 MG/2 ML VIAL. IV PRN (10:15)
[2019-01-05] MEDS ORDERED: fentaNYL PF VIAL 100 MCG/2 ML VIAL IV PRN ×2 (10:15)
[2019-01-05] MEDS ORDERED: LIDOCAINE 1% PF 2 ML VIAL. ID PRN (10:15)
[2019-01-05] MEDS ORDERED: PROCHLORPERAZINE 10 MG/2 ML VIAL. IV PRN (10:15)
[2019-01-05 10:46] VITALS: BP 132/87
[2019-01-05] MEDS ORDERED: DEXAMETHASONE SOD PHOS 4 MG/ML VIAL ONE (12:12)
[2019-01-05] MEDS ORDERED: fentaNYL PF VIAL 100 MCG/2 ML VIAL ONE (12:13)
[2019-01-05] MEDS ORDERED: PROPOFOL 20 ML IV ONE (12:13)
[2019-01-05] MEDS ORDERED: ONDANSETRON PF 4 MG/2 ML VIAL. ONE (12:13)
[2019-01-05] MEDS ORDERED: SEVOFLURANE 31 TO 60 MINUTES. IH ONE (12:13)
[2019-01-05] MEDS ORDERED: LIDOCAINE 2% PF 5 ML VIAL. ONE (12:13)
[2019-01-05] MEDS ORDERED: IOHEXOL 300 MG/ML 50 ML VIAL. ONE (12:15)
--- NOTE | 2019-01-05 13:01 | PDOC4 ---
OPERATIVE NOTE Date: Date: Jan 05, 2019 Pre-Op Diagnosis: R distal stone Post-Op Diagnosis: same Procedure Performed: cysto, R uret'y, laser litho, stone rem, stent placemtn Surgeon: Randa Anesthesia Type: Gen Blood Loss: min Specimans Obtained: stone fragments Findings: distal R UC Complications: none Operative Note: GE, lith'y pos'n, prepped and draped usual fashion, IV Ancef adm Cysto w 21 Fr scope and bladder exam wnl Guidewire placed thru R UO into renal palvis by fluoro A 6.9 Fr uret'scope was maneuvered into the R ureter. A med sized stone was identified. The 350 micron laser fiber was used to fragment stone into 4-5 pieces. The fragments were retrieved with the tricep grasper. Final inspection revealed no remaining frgments. The ureteroscope was removed and the 21 Fr scope re-placed. A 6 x 26 cm stent on string was placed n usual fashion with fluoro cx. The scope was used to retrieve several stone fragments. The bldder was emptied and the scope removed. The string was secured to penis in usual fashion. Disp: Home w Rx's anselmo Lynn Return next week for stent removal. JAN KONG MD Jan 05, 2019 13:01
[2019-01-05 13:45] VITALS: BP 146/100
[2019-01-05 14:00] VITALS: BP 148/107
[2019-01-05] MEDS ORDERED: TAMS0.4C97 PO (14:06)
[2019-01-05] MEDS ORDERED: CIPR250T30 PO (14:08)
--- NOTE | 2019-01-05 14:12 | PDOC3 ---
Discharge Summary Visit Information Date of Admission: Jan 04, 2019 Date of Discharge: Jan 05, 2019 Admitting Diagnosis: Right obstructing kidney stone Final Diagnosis Problems Medical Problems: (1) Kidney stone Status: Acute Brief Hospital Course Allergies Allergies Coded Allergies Type Severity Reaction Last Updated Verified No Known Drug Allergies 01/04/19 No Vital Signs Vital Signs Date Time Temp Pulse Resp B/P (MAP) Pulse Ox O2 Delivery O2 Flow Rate FiO2 01/05/19 10:46 98.0 73 18 132/87 (102) 95 Room Air 98.0 Lab Results Laboratory Tests Test 01/04/19 14:00 01/04/19 14:25 01/05/19 08:14 Urine Collection Type Unknown Urine Color Yellow Urine Clarity Clear Urine pH 5.0 Urine Specific [place] 1.015 Urine Protein Negative mg/dL (NEG-TRACE) Urine Glucose (UA) 500 mg/dL (NEG) Urine Ketones (Stick) Negative mg/dL (NEG) Urine Blood Large (NEG) Urine Nitrite Negative (NEG) Urine Bilirubin Negative (NEG) Urine Urobilinogen Dipstick 0.2 mg/dL (0.2 mg/dL) Urine Leukocyte Esterase Negative (NEG) Urine RBC Tntc /HPF (0-2) Urine WBC Occ /HPF (0-4) Urine Bacteria 0 /HPF (0-FEW) Urine Hyaline Casts Moderate /HPF Urine Mucus Marked /LPF Urine Opiates Screen Neg (NEG) Urine Methadone Screen Neg (NEG) Urine Barbiturates Neg (NEG) Urine Phencyclidine Screen Neg (NEG) Urine Amphetamine/Methamphetamine Neg (NEG) Urine Benzodiazepines Screen Neg (NEG) Urine Cocaine Screen Neg (NEG) Urine Cannabinoids Screen Neg (NEG) Urine Ethyl Alcohol Neg (NEG) White Blood Count 9.3 x10^3/uL (4.0-11.0) Red Blood Count 4.88 x10^6/uL (4.30-5.70) Hemoglobin 15.1 g/dL (13.0-17.5) Hematocrit 43.9 % (39.0-53.0) Mean Corpuscular Volume 90 fL (79-100) Mean Corpuscular Hemoglobin 31 pg (25-35) Mean Corpuscular Hemoglobin Concent 35 g/dL (31-37) Red Cell Distribution Width 13.8 % (11.5-14.5) Platelet Count 218 x10^3/uL (140-400) Neutrophils (%) (Auto) 79 % (31-73) Lymphocytes (%) (Auto) 14 % (24-48) Monocytes (%) (Auto) 5 % (0-9) Eosinophils (%) (Auto) 1 % (0-3) Basophils (%) (Auto) 1 % (0-3) Neutrophils # (Auto) 7.4 x10^3/uL (1.8-7.7) Lymphocytes # (Auto) 1.3 x10^3/uL (1.0-4.8) Monocytes # (Auto) 0.5 x10^3/uL (0.0-1.1) Eosinophils # (Auto) 0.1 x10^3/uL (0.0-0.7) Basophils # (Auto) 0.0 x10^3/uL (0.0-0.2) Sodium Level 135 mmol/L (136-145) Potassium Level 4.4 mmol/L (3.5-5.1) Chloride Level 101 mmol/L (98-107) Carbon Dioxide Level 23 mmol/L (21-32) Anion Gap 11 (6-14) Blood Urea Nitrogen 11 mg/dL (8-26) Creatinine 1.0 mg/dL (0.7-1.3) Estimated GFR (Cockcroft-Gault) 78.5 BUN/Creatinine Ratio 11 (6-20) Glucose Level 239 mg/dL (70-99) Calcium Level 9.7 mg/dL (8.5-10.1) Total Bilirubin 0.6 mg/dL (0.2-1.0) Aspartate Amino Transf (AST/SGOT) 45 U/L (15-37) Alanine Aminotransferase (ALT/SGPT) 85 U/L (16-63) Alkaline Phosphatase 88 U/L (46-116) Total Protein 7.8 g/dL (6.4-8.2) Albumin 4.0 g/dL (3.4-5.0) Albumin/Globulin Ratio 1.1 (1.0-1.7) Glucose (Fingerstick) 204 mg/dL (70-99) Laboratory Tests Test 01/04/19 14:25 01/05/19 08:14 White Blood Count 9.3 x10^3/uL (4.0-11.0) Red Blood Count 4.88 x10^6/uL (4.30-5.70) Hemoglobin 15.1 g/dL (13.0-17.5) Hematocrit 43.9 % (39.0-53.0) Mean Corpuscular Volume 90 fL (79-100) Mean Corpuscular Hemoglobin 31 pg (25-35) Mean Corpuscular Hemoglobin Concent 35 g/dL (31-37) Red Cell Distribution Width 13.8 % (11.5-14.5) Platelet Count 218 x10^3/uL (140-400) Neutrophils (%) (Auto) 79 % (31-73) Lymphocytes (%) (Auto) 14 % (24-48) Monocytes (%) (Auto) 5 % (0-9) Eosinophils (%) (Auto) 1 % (0-3) Basophils (%) (Auto) 1 % (0-3) Neutrophils # (Auto) 7.4 x10^3/uL (1.8-7.7) Lymphocytes # (Auto) 1.3 x10^3/uL (1.0-4.8) Monocytes # (Auto) 0.5 x10^3/uL (0.0-1.1) Eosinophils # (Auto) 0.1 x10^3/uL (0.0-0.7) Basophils # (Auto) 0.0 x10^3/uL (0.0-0.2) Sodium Level 135 mmol/L (136-145) Potassium Level 4.4 mmol/L (3.5-5.1) Chloride Level 101 mmol/L (98-107) Carbon Dioxide Level 23 mmol/L (21-32) Anion Gap 11 (6-14) Blood Urea Nitrogen 11 mg/dL (8-26) Creatinine 1.0 mg/dL (0.7-1.3) Estimated GFR (Cockcroft-Gault) 78.5 BUN/Creatinine Ratio 11 (6-20) Glucose Level 239 mg/dL (70-99) Calcium Level 9.7 mg/dL (8.5-10.1) Total Bilirubin 0.6 mg/dL (0.2-1.0) Aspartate Amino Transf (AST/SGOT) 45 U/L (15-37) Alanine Aminotransferase (ALT/SGPT) 85 U/L (16-63) Alkaline Phosphatase 88 U/L (46-116) Total Protein 7.8 g/dL (6.4-8.2) Albumin 4.0 g/dL (3.4-5.0) Albumin/Globulin Ratio 1.1 (1.0-1.7) Glucose (Fingerstick) 204 mg/dL (70-99) Brief Hospital Course Mr Hanna is a 53yo male w/ PMHx diabetes, hypertension, kidney stones, obese who was admitted with flank pain 10/10 and nausea, found on CAT scan with a right ureterovesicular junction 6 mm stone with moderate hydronephrosis. He has a history of multiple kidney stones requiring b/[place] [facility] [place] Pain was improved to 5/10 after toradol injection. NPO for surgery, had laser lithotripsy with no remaining stone fragments noted and placement of uretal stent and recommendations for 1 week cipro and f/u in office for stent removal Chief Complaint Right obstructive uropathy - 6mm uretal stone Hepatic steatosis Diabetes - with hyperglycemia Hypertension H/o kidney stones Obesity Transaminitis Greater than 30 minutes spent on d/c Discharge Information Condition at Discharge: Improved Follow Up: Weeks (1) Disposition/Orders: D/C to Home Scheduled Ciprofloxacin Hcl (Cipro) 250 Mg Tablet, 1 TAB PO BID for Uretal stent for 7 Days, #14 Prescribed by: NORA MANN MD on 01/05/19 1408 Tamsulosin Hcl (Flomax) 0.4 Mg Cap.er.24h, 0.4 MG PO [id number] for Kidney stones for 7 Days, #14 Prescribed by: NORA MANN MD on 01/05/19 1406 NORA MANN MD Jan 05, 2019 14:12
[2019-01-05 14:15] VITALS: BP 141/99
--- NOTE | 2019-01-05 15:58 | NUR ---
pt discharged home with . meds and follow up reviewed. pt provided w/ cysto aftercare education. IV removed cath intact. pt stable upon dc.
== END 2019-01-05 15:00 | disposition home or self-care (01) | DRG 660 ==
LOC: ER 12:07 → 5 SOUTH 16:00
PROVIDERS: ADMIT Internal Medicine; ATTEND Internal Medicine
PROC: 0TC68ZZ Extirpation of Matter from Right Ureter, Via Natural or Artificial Opening Endoscopic (ICD-10-PCS; 2019-01-05)
PROC: 0T768DZ Dilation of Right Ureter with Intraluminal Device, Via Natural or Artificial Opening Endoscopic (ICD-10-PCS; principal; 2019-01-05 11:30)
DX: N13.2 Hydronephrosis with renal and ureteral calculous obstruction (principal); Z68.41 Body mass index [BMI] 40.0-44.9, adult; E11.65 Type 2 diabetes mellitus with hyperglycemia; I10 Essential (primary) hypertension; E66.9 Obesity, unspecified; K76.0 Fatty (change of) liver, not elsewhere classified; R74.0 Nonspecific elevation of levels of transaminase and lactic acid dehydrogenase [LDH]; Z82.49 Family history of ischemic heart disease and other diseases of the circulatory system; Z87.442 Personal history of urinary calculi; Z90.49 Acquired absence of other specified parts of digestive tract; Z79.899 Other long term (current) drug therapy
CPT/HCPCS: 36415; 74176; 76000; 80053; 80307; 81001; 82962; 85025; 96361; 96374; 96375; A7015; C1769; C2617; J0696; J1100; J1815; J1885; J2001; J2405; J2704; J3010; J7030; Q9967; 99285-25; G0378

== ENCOUNTER 2020-01-07 05:15 | Emergency (ER) | payer OTHER ==
[~2020-01-07] VITALS: Ht 182.9 cm; Wt 136.0 kg
[~2020-01-07 05:15] MED LIST: CIPR250T30 PO; TAMS0.4C97 PO
--- NOTE | 2020-01-07 05:34 | PHYS DOC ---
Past Medical History Past Medical History: Diabetes-Type II, Hypertension, Kidney Stone (SALVATORE APTE MD) Past Surgical History: Tonsillectomy Additional Past Surgical Histo: KNEE SURGERY, KIDNEY STONES (SALVATORE PATE MD) Smoking Status: Never Smoker Alcohol Use: Occasionally Drug Use: None (SALVATORE PATE MD) General Adult EDM: Chief Complaint: FLANK PAIN HPI: HPI: Patient is a 54 year old male who presents with a 1 hour history of right flank pain. Pain is 10 out of 10 and sharp stabbing starts in the right flank radiates to the right abdomen. Nothing makes the pain worse or better. Patient denies any nausea vomiting fevers chills cough shortness of breath. Patient denies any recent trauma. Patient has a history of kidney stones and symptoms f eel similar to that. (SALVATORE PATE MD) Review of Systems: Review of Systems: Constitutional: Denies fever or chills. [] Eyes: Denies change in visual acuity. [] HENT: Denies nasal congestion or sore throat. [] Respiratory: Denies cough or shortness of breath. [] Cardiovascular: Denies chest pain or edema. [] GI: Complains of abdominal pain but no nausea, vomiting, bloody stools or diarrhea. [] : Denies dysuria. [] Musculoskeletal: Complains of right flank pain but no joint pain. [] Integument: Denies rash. [] Neurologic: Denies headache, focal weakness or sensory changes. [] Endocrine: Denies polyuria or polydipsia. [] Lymphatic: Denies swollen glands. [] Psychiatric: Denies depression or anxiety. [] (SALVATORE PATE MD) Heart Score: Risk Factors: Risk Factors: DM, Current or recent (<one month) smoker, HTN, HLP, family history of CAD, obesity. Risk Scores: Score 0 - 3: 2.5% MACE over next 6 weeks - Discharge Home Score 4 - 6: 20.3% MACE over next 6 weeks - Admit for Clinical Observation Score 7 - 10: 72.7% MACE over next 6 weeks - Early Invasive Strategies (SALVATORE PATE MD) Allergies: Allergies: Allergies Coded Allergies Type Severity Reaction Last Updated Verified No Known Drug Allergies 01/04/19 No (SALVATORE PATE MD) Physical Exam: PE: Constitutional: Well developed, well nourished, no acute distress, non-toxic appearance. [] HENT: Normocephalic, atraumatic, bilateral external ears normal, no trismus nose normal. [] Eyes: PERRLA, EOMI, conjunctiva normal, no discharge. [] Neck: Normal range of motion, no tenderness, supple, no stridor. [] Cardiovascular:Heart rate regular rhythm, peripheral pulses are intact, cap refill is brisk Lungs & Thorax: Bilateral breath sounds clear, no respiratory distress Abdomen: , soft, no tenderness, no masses, no pulsatile masses. [] Skin: Warm, dry, no erythema, no rash. [] Back: No tenderness, no CVA tenderness. [] Extremities: No tenderness, no cyanosis, no clubbing, ROM intact, no edema. [] Neurologic: Alert and oriented X 3, normal motor function, normal sensory function, no focal deficits noted. [] Psychologic: Affect normal, judgement normal, mood normal. [] (SALVATORE PATE MD) Current Patient Data: Labs: Laboratory Tests Test 01/07/20 06:10 01/07/20 07:10 White Blood Count 7.4 x10^3/uL Red Blood Count 4.47 x10^6/uL Hemoglobin 13.6 g/dL Hematocrit 40.3 % Mean Corpuscular Volume 90 fL Mean Corpuscular Hemoglobin 30 pg Mean Corpuscular Hemoglobin Concent 34 g/dL Red Cell Distribution Width 13.2 % Platelet Count 271 x10^3/uL Neutrophils (%) (Auto) 61 % Lymphocytes (%) (Auto) 27 % Monocytes (%) (Auto) 9 % Eosinophils (%) (Auto) 3 % Basophils (%) (Auto) 1 % Neutrophils # (Auto) 4.5 x10^3/uL Lymphocytes # (Auto) 2.0 x10^3/uL Monocytes # (Auto) 0.6 x10^3/uL Eosinophils # (Auto) 0.2 x10^3/uL Basophils # (Auto) 0.1 x10^3/uL Maternal Serum HCG Beta Subunit < 1 mIU/mL Sodium Level 136 mmol/L Potassium Level 3.8 mmol/L Chloride Level 100 mmol/L Carbon Dioxide Level 24 mmol/L Anion Gap 12 Blood Urea Nitrogen 22 mg/dL Creatinine 1.1 mg/dL Estimated GFR (Cockcroft-Gault) 70.0 Glucose Level 155 mg/dL Calcium Level 9.1 mg/dL Urine Collection Type Unknown Urine Color Yellow Urine Clarity Clear Urine pH 5.0 Urine Specific [place] 1.020 Urine Protein Negative mg/dL Urine Glucose (UA) >=1000 mg/dL Urine Ketones (Stick) Negative mg/dL Urine Blood Negative Urine Nitrite Negative Urine Bilirubin Negative Urine Urobilinogen Dipstick 0.2 mg/dL Urine Leukocyte Esterase Negative Urine RBC Occ /HPF Urine WBC 0 /HPF Urine Squamous Epithelial Cells Occ /LPF Urine Bacteria 0 /HPF Urine Mucus Slight /LPF Current Medications Medications (Trade) Dose Ordered Sig/Cristina Route PRN Reason Start Time Stop Time Status Last Admin Dose Admin Ketorolac Tromethamine (Toradol 15mg Vial) 15 mg 1X ONCE IVP 01/07/20 06:00 01/07/20 06:01 DC 01/07/20 06:13 Ondansetron HCl (Zofran) 4 mg 1X ONCE IVP 01/07/20 06:00 01/07/20 06:01 DC 01/07/20 06:13 Sodium Chloride 1,000 ml @ 1,000 mls/hr 1X ONCE IV 01/07/20 06:00 01/07/20 06:59 DC 01/07/20 06:12 Morphine Sulfate (Morphine Sulfate) 4 mg 1X ONCE IV 01/07/20 06:00 01/07/20 06:01 DC 01/07/20 06:12 (KIRSTIE SANABRIA DO) EKG: EKG: [] (SALVATORE PATE MD) Radiology/Procedures: Radiology/Procedures: [] (SALVATORE PATE MD) Radiology/Procedures: [facility] [address] [place] [address] IMAGING REPORT Signed PATIENT: JESÚS ESTRADA BACCOUNT: [id number] : 1965 LOCATION: ER AGE: 54 SEX: M EXAM STATUS: REG ER ORD. PHYSICIAN: SALVATORE PATE MD REASON: r flank pain, r/o stone PROCEDURE: CT ABDOMEN PELVIS WO CONTRAST Examination: CT of the abdomen pelvis without contrast HISTORY: History of right flank pain COMPARISON: 01/08/2013 TECHNIQUE: Axial CT images of the abdomen pelvis were performed without IV contrast. Coronal and sagittal reformats are performed Exposure: One or more of the following individualized dose reduction techniques were utilized for this examination: 1. Automated exposure control 2. Adjustment of the mA and/or kV according to patient size 3. Use of iterative reconstruction technique FINDINGS: Minimal left lung base atelectasis. No evidence of free air identified in the abdomen. Mild degree attenuation noted in the liver likely steatosis. The spleen, adrenals grossly appears unremarkable. The gallbladder is mildly distended. The stomach is mildly distended . The visualized pancreas grossly appears unremarkable. The small bowel is nondilated. The appendix is normal. Feces and gas noted in the colon. Urinary bladder is mildly distended. Bilateral intrarenal collecting system calculi identified with the largest measuring 1.1 cm in the right kidney. Moderate right-sided hydronephrosis identified with a 9 mm calculus identified at the site ureteropelvic junction. 1.5 cm cystic structure identified in the right kidney could be a cyst similar to prior exam.. Few sigmoid colon diverticulosis identified. Moderate degenerative changes lower lumbar spine. IMPRESSION: 1. 9 mm calculus identified at the right ureteropelvic junction causing moderate right-sided hydronephrosis. 2. Bilateral nephrolithiasis. 3. Sigmoid colon diverticulosis. 4. Hepatic steatosis. Electronically signed by: Gio Lopez MD (01/07/2020 6:07 AM) [id number] DICTATED and SIGNED BY: GIO LOPEZ MD DATE: 01/07/20 0607 (KIRSTIE SANABRIA DO) Course & Med Decision Making: Course & Med Decision Making Pertinent Labs and Imaging studies reviewed. (See chart for details) [] 54-year-old male presents with symptoms consistent with his prior kidney stone. Initial laboratory and imaging work-up has been ordered, case he will be signed out to to follow-up on this and the disposition is pending. (SALVATORE PATE MD) Course & Med Decision Making I have received signout on the patient's emergency department care from Dr. Pate. We discussed the history, physical exam findings, completed and pending laboratory results and imaging studies. We have also discussed the current treatment plan and expected clinical course. Please refer to further update notes for additional information regarding the patient's final diagnosis and disposition. In brief patient is a 54-year-old male who presents with chief complaint of acute onset right flank pain. CT imaging reveals a 9 mm kidney stone near the UVJ with associated moderate hydronephrosis. Kidney function normal. Unfortunately we do not have urology coverage at our facility. I am concerned about the patient's ability to pass this kidney stone spontaneously given the size of the kidney stone. Patient is agreeable to transfer. Patient will be transferred to [facility] for further care. He has remained hemodynamically stable. After speaking with the [facility] transfer center they did not have immediately available bed within their hospital. Patient is requesting transfer via private vehicle. Given the circumstances he will be transferred from our emergency department to their emergency department. Accepting physician . Patient's IV was removed prior to transfer. is at bedside and will drive the patient directly to their facility. His vital signs are stable at time of transfer. (KIRSTIE SANABRIA DO) Dragon Disclaimer: Dragon Disclaimer: This electronic medical record was generated, in whole or in part, using a voice recognition dictation system. (SALVATORE PATE MD) Departure Departure Impression: Primary Impression: Right flank pain Additional Impression: Kidney stone Disposition: 02 TRANSFER [facility] Condition: STABLE Referrals: NO PCP (PCP) Justicifation of Admission Dx: Justifications for Admission: Justification of Admission Dx: N/A (SALVATORE PATE MD) Justification of Admission Dx: Yes Comments: Right 9mm UVJ stone (KIRSTIE SANABRIA DO) SALVATORE PATE MD Jan 07, 2020 05:34 KIRSTIE SANABRIA DO Jan 07, 2020 08:02
[2020-01-07] MEDS ORDERED: IV NORMAL SALINE 1000ML BAG 1,000 ML IV ONE (06:00)
[2020-01-07] MEDS ORDERED: ONDANSETRON PF 4 MG/2 ML VIAL. IVP ONE (06:00)
[2020-01-07] MEDS ORDERED: MORPHINE SULFATE 4 MG/ML VIAL. IV ONE ×2 (06:00→09:30)
[2020-01-07] MEDS ORDERED: KETOROLAC 15 MG/ML VIAL. IVP ONE (06:00)
--- NOTE | 2020-01-07 06:10 | RAD ---
Examination: CT of the abdomen pelvis without contrast HISTORY: History of right flank pain COMPARISON: 01/08/2013 TECHNIQUE: Axial CT images of the abdomen pelvis were performed without IV contrast. Coronal and sagittal reformats are performed Exposure: One or more of the following individualized dose reduction techniques were utilized for this examination: 1. Automated exposure control 2. Adjustment of the mA and/or kV according to patient size 3. Use of iterative reconstruction technique FINDINGS: Minimal left lung base atelectasis. No evidence of free air identified in the abdomen. Mild degree attenuation noted in the liver likely steatosis. The spleen, adrenals grossly appears unremarkable. The gallbladder is mildly distended. The stomach is mildly distended . The visualized pancreas grossly appears unremarkable. The small bowel is nondilated. The appendix is normal. Feces and gas noted in the colon. Urinary bladder is mildly distended. Bilateral intrarenal collecting system calculi identified with the largest measuring 1.1 cm in the right kidney. Moderate right-sided hydronephrosis identified with a 9 mm calculus identified at the site ureteropelvic junction. 1.5 cm cystic structure identified in the right kidney could be a cyst similar to prior exam.. Few sigmoid colon diverticulosis identified. Moderate degenerative changes lower lumbar spine. IMPRESSION: 1. 9 mm calculus identified at the right ureteropelvic junction causing moderate right-sided hydronephrosis. 2. Bilateral nephrolithiasis. 3. Sigmoid colon diverticulosis. 4. Hepatic steatosis. Electronically signed by: Gio Lopez MD (01/07/2020 6:07 AM) [id number]
[2020-01-07 06:37] LABS: BASO # 0.1 x10^3/uL (0.0-0.2); BASO % 1 % (0-3); EOS # 0.2 x10^3/uL (0.0-0.7); EOS % 3 % (0-3); HEMATOCRIT 40.3 % (39.0-53.0); HEMOGLOBIN 13.6 g/dL (13.0-17.5); LYMPH % 27 % (24-48); MEAN CORPUSCULAR HEMOGLOBIN 30 pg (25-35); MEAN CORPUSCULAR HGB CONC 34 g/dL (31-37); MEAN CORPUSCULAR VOLUME 90 fL (79-100); MONO # 0.6 x10^3/uL (0.0-1.1); MONO % 9 % (0-9); NEUT # 4.5 x10^3/uL (1.8-7.7); NEUT % 61 % (31-73); PLATELET COUNT 271 x10^3/uL (140-400); RED BLOOD COUNT 4.47 x10^6/uL (4.30-5.70); RED CELL DISTRIBUTION WIDTH 13.2 % (11.5-14.5); WHITE BLOOD COUNT 7.4 x10^3/uL (4.0-11.0)
[2020-01-07 06:47] LABS: CALCIUM 9.1 mg/dL (8.5-10.1); CREATININE 1.1 mg/dL (0.7-1.3); POTASSIUM 3.8 mmol/L (3.5-5.1)
[2020-01-07 07:25] LABS: BILIRUBIN,URINE NEGATIVE (NEG); CLARITY,URINE CLEAR; COLOR,URINE YELLOW; NITRITE,URINE NEGATIVE (NEG); PROTEIN,URINE NEGATIVE (NEG-TRACE); UROBILINOGEN,URINE 0.2 mg/dL (0.2 mg/dL)
[2020-01-07 07:42] LABS: RBC,URINE OCC /HPF (0-2); WBC,URINE 0 /HPF (0-4)
[2020-01-07 07:43] LABS: BACTERIA,URINE 0 /HPF (0-FEW); SQUAMOUS EPITHELIAL CELL,UR OCC /LPF
[2020-01-07 10:22] VITALS: BP 100/61
== END 2020-01-07 10:40 | disposition short-term general hospital (02) ==
LOC: ER 05:15
DX: R10.9 Unspecified abdominal pain (principal); N13.2 Hydronephrosis with renal and ureteral calculous obstruction; K57.30 Diverticulosis of large intestine without perforation or abscess without bleeding; K76.0 Fatty (change of) liver, not elsewhere classified
CPT/HCPCS: 36415; 74176; 80048; 81001; 84702; 85025; 96361; 96374; 96375; 96376; 99285; J1885; J2270; J2405; J7030